=== PATIENT | female | born 1985 ===

== ENCOUNTER 2017-01-28 08:31 | Day surgery (SDC) | payer OTHER ==
[2017-01-28 08:47] VITALS: BMI 25.4
[2017-01-28 09:30] VITALS: O2SAT 100
[2017-01-28] MEDS ORDERED: Lactated Ringer's 1,000 ML IV ONE ×2 (09:35)
[2017-01-28] MEDS ORDERED: Propofol 10 mg/ml Inj (20 ML) ONE (09:38)
[2017-01-28] MEDS ORDERED: Lactated Ringer's 500 ML IV SCH (09:45)
[2017-01-28 10:13] VITALS: RESP 12; TEMP 97.8
[2017-01-28 10:48] VITALS: BP 119/82; PULSE 58
== END 2017-01-28 10:46 | disposition home or self-care (01) ==
LOC: C.ENDO 08:31
PROVIDERS: ATTEND Internal Medicine
DX: D12.0 Benign neoplasm of cecum (principal); R10.31 Right lower quadrant pain; K64.8 Other hemorrhoids; D12.5 Benign neoplasm of sigmoid colon
CPT/HCPCS: 45380; 84703; 88305; J2704; J3010; J7120